=== PATIENT | female | born 1995 | race Caucasian/White ===

== ENCOUNTER 2016-06-10 10:40 | Emergency (ER) | payer OTHER ==
[2016-06-10 10:59] VITALS: TEMP 98.1; O2SAT 97
--- NOTE | 2016-06-10 11:28 | EDPHY ---
H & P Stated Complaint: low back pain s/p fall today Time Seen by Provider: 06/10/16 11:03 HPI/ROS: CHIEF COMPLAINT: fall, left lower back pain HISTORY OF PRESENT ILLNESS: Hiking today at [facility] when she slipped and fell, landing on her back. She landed on her left lower back on a rock. No head injury. No loss of conscious. No chest pain or shortness of breath. No neck or upper back pain. No midline back pain in the lower neck. The pain is in the left lower back is without midline tenderness. It is mild to moderate pain. It is worse with palpation and movement. No radiating pain. No saddle anesthesia. No incontinence of bowel or bladder. No weakness of the lower extremities. No trauma elsewhere. No other associated complaints or modifying factors. PRIOR ORTHO INJURIES: none ESTABLISHED ORTHOPEDIST: none REVIEW OF SYSTEMS: Ten systems reviewed and are negative unless otherwise noted in the HPI EXAMINATION General Appearance: Alert, no distress Head: normocephalic, atraumatic Eyes: Pupils equal and round, no conjunctival pallor or injection ENT, Mouth: Mucous membranes moist . Uvula midline. Neck: Normal inspection . No bony tenderness or crepitus. Respiratory: No dyspnea or retractions. No distress Cardiovascular: Pulses normal throughout. Brisk cap refill Back: Tenderness to palpation of the left lower musculature. There is no midline tenderness at any level back. No crepitus, step-off or deformity. Neurological: A&O, sensory symmetric, strength symmetric In all limbs Skin: Warm and dry, no rash Extremities: Nontender, no pedal edema Psychiatric: Mood and affect normal DIFFERENTIAL DIAGNOSES: Including but not limited to contusion, strain, sprain, pelvic fracture MDM: 11:15 a.m. mechanical fall with left lower back pain. There is some pain over the sacral ala and the left posterior superior iliac spine. There is no midline tenderness of the back at any level. No incontinence. No saddle anesthesia. No weakness. Patient is requesting a pelvic x-ray, and will be happy to do so. She reports there is no chance of and has declined a urine test. 11:50 a.m. x-ray returned as no acute findings. She remains neurovascularly intact with no midline bony tenderness or signs or symptoms of a cauda equina or acute cord compression. Discharged home with symptomatic medications and follow up with Orthopedics for definitive care as needed. Patient comfortable with this plan and discharged home in stable condition. ED Precautions: Worsening pain. Erythema, edema, cyanosis, pallor, paresthesia or anesthesia. SUPERVISION: This patient was independently evaluated without the aide of supervising physician. Source: Patient Exam Limitations: No limitations - Personal History LMP (Females 10-55): 1-7 Days Ago Current Tetanus/Diphtheria Vaccine: Yes Current Tetanus Diphtheria and Acellular Pertussis (TDAP): Yes - Medical/Surgical History Hx Asthma: No Hx Chronic Respiratory Disease: No Hx Diabetes: No Hx Cardiac Disease: No Hx Renal Disease: No Hx Cirrhosis: No Hx Alcoholism: No Hx HIV/AIDS: No Hx Splenectomy or Spleen Trauma: No Other PMH: PMH: PSH: LEO RUST - Social History Smoking Status: Current some day smoker Constitutional: Initial Vital Signs Temperature (C) 98.1 F 06/10/16 10:55 Heart Rate 105 H 06/10/16 10:55 Respiratory Rate 18 06/10/16 10:55 Blood Pressure 105/72 06/10/16 10:55 O2 Sat (%) 97 06/10/16 10:55 O2 Delivery Mode Room Air Allergies/Adverse Reactions: No Known Allergies Allergy (Unverified 06/10/16 10:59) Home Medications: Medication Instructions Recorded Cyclobenzaprine [Flexeril 10 MG 10 mg PO TID PRN #15 tab 06/10/16 (*)] Ibuprofen 600 mg PO Q6-8PRN PRN #20 tablet 06/10/16 Departure - Departure Disposition: Home, Routine, Self-Care Clinical Impression: Fall, Acute low back pain Instructions: Low Back Strain (ED), Acute Low Back Pain (ED) Referrals: OUT OF STATE,. [Primary Care Provider] - As per Instructions Luis Huog MD [Medical Doctor] - As per Instructions Prescriptions: Cyclobenzaprine [Flexeril 10 MG (*)] 10 mg PO TID PRN #15 tab PRN Reason: Spasms Ibuprofen 600 mg PO Q6-8PRN PRN #20 tablet PRN Reason: Pain, Mild
--- NOTE | 2016-06-10 11:47 | DX ---
AP pelvis History: Left-sided pain post fall Comparison: None Findings: No fracture or malalignment is identified. The SI joints, hip joints and pubic symphysis lo ok normal. The left iliac bone specifically looks normal. There is an IUD in the pelvis. Impression: Nothing acute identified.
[2016-06-10 12:05] VITALS: BP 113/72; PULSE 97; RESP 16
== END 2016-06-10 12:00 | disposition home or self-care (01) ==
DX: S39.92XA Unspecified injury of lower back, initial encounter (principal); F17.200 Nicotine dependence, unspecified, uncomplicated; W01.0XXA Fall on same level from slipping, tripping and stumbling without subsequent striking against object, initial encounter; Y92.830 Public park as the place of occurrence of the external cause